=== PATIENT | female | born 1980 | race Caucasian/White ===

== ENCOUNTER 2022-03-03 15:42 | Outpatient (CLI) | payer BC, SELFPAY | END 2022-03-03 15:43 | disposition home or self-care (01) | LOC: NFLDREF 15:42 | PROVIDERS: Visit Provider Obstetrics & Gynecology | DX: Z01.419 Encounter for gynecological examination (general) (routine) without abnormal findings (principal); E66.9 Obesity, unspecified; Z12.4 Encounter for screening for malignant neoplasm of cervix; Z13.6 Encounter for screening for cardiovascular disorders | CPT/HCPCS: 87624; 88175 ==

== ENCOUNTER 2023-03-24 13:03 | Outpatient (CLI) | payer BC, SELFPAY ==
--- NOTE | 2023-03-24 13:20 | CRLHL7_ITS ---
For Patients: As a result of the Century Cures Act, medical imaging exams and procedure reports are released immediately into your electronic medical record. You may view this report before your referring provider. If you have questions, please contact your health care provider. BILATERAL DIGITAL SCREENING MAMMOGRAM WITH TOMOSYNTHESIS AND COMPUTER-AIDED DETECTION, 03/24/2023 INDICATION: 43-year-old female. Screening evaluation. TECHNIQUE: CC and MLO views were obtained. This digital study was evaluated with the assistance of computer-aided detection. Digital breast tomosynthesis utilized in interpretation. COMPARISON: May 11, 2020. FINDINGS: Breast composition: There are scattered areas of fibroglandular density. Within the superior lateral RIGHT breast at approximately the 10 o`clock position 5 cm from the nipple is a small cluster of punctate microcalcifications. The is a subtly increased in number and conspicuity when compared to May 11, 2020. A spot compression view with magnification in the CC and true ML projection recommended as a first step. The LEFT breast is negative and unchanged. IMPRESSION: Small cluster of punctate microcalcifications upper-outer quadrant RIGHT breast approximately 5 cm from the nipple at the 10 o`clock position for which additional imaging is recommended as a first step. BI-RADS Category 0: Incomplete: Need Additional Imaging Evaluation and/or Prior Mammograms for Comparison The [facility] will contact the patient for follow-up. A lay language report of this examination will be provided to the patient. Dictated by: Aki Prado MD @03/27/2023 8:45:27 AM JR/Dictated by: Aki Prado MD @ 03/27/2023 8:45:00 AM (Electronically Signed)
== END 2023-03-24 13:04 | disposition home or self-care (01) ==
LOC: MAMMO 13:05
PROVIDERS: Visit Provider Orthopaedic Surgery
DX: Z12.31 Encounter for screening mammogram for malignant neoplasm of breast (principal); R92.0 Mammographic microcalcification found on diagnostic imaging of breast
CPT/HCPCS: 77063; 77067

== ENCOUNTER 2023-03-29 07:35 | Outpatient (CLI) | payer BC, SELFPAY ==
--- NOTE | 2023-03-29 07:45 | CRLHL7_ITS ---
For Patients: As a result of the Cures Act, medical imaging exams and procedure reports are released immediately into your electronic medical record. You may view this report before your referring provider. If you have questions, please contact your health care provider. RIGHT BREAST DIAGNOSTIC MAMMOGRAM WITH COMPUTER-AIDED DETECTION INDICATION: Follow up microcalcifications. TECHNIQUE: Spot compression magnification view of the RIGHT breast in the CC and true ML projection. MLO view was also obtained. COMPARISON: March 24, 2023, May 11, 2020. FINDINGS: Small cluster of calcifications upper outer RIGHT breast 10 o`clock position approximately 5-6 cm from the nipple. These appear to reflect [id number] which is a benign finding. Stereotactic breast biopsy is not recommended. Annual mammography is recommended. These findings were discussed in detail with the patient and the patient`s mother who was present in the room. IMPRESSION: Benign calcifications upper outer RIGHT breast. Annual mammography recommended. BI-RADS Category 2: Benign A lay language report of this examination will be provided to the patient. Dictated by: Aki Prado MD @03/29/2023 8:54:35 AM/rosas DIMAS/Dictated by: Aki Prado MD @ 03/29/2023 8:53:00 AM (Electronically Signed)
== END 2023-03-29 07:36 | disposition home or self-care (01) ==
PROVIDERS: Visit Provider Physician Assistant
DX: R92.0 Mammographic microcalcification found on diagnostic imaging of breast (principal); N63.10 Unspecified lump in the right breast, unspecified quadrant; R92.8 Other abnormal and inconclusive findings on diagnostic imaging of breast
CPT/HCPCS: 77065; G0279

== ENCOUNTER 2023-04-11 12:09 | Outpatient (CLI) | payer BC, SELFPAY | END 2023-04-11 12:10 | disposition home or self-care (01) | PROVIDERS: Visit Provider Physician Assistant | DX: Z01.419 Encounter for gynecological examination (general) (routine) without abnormal findings (principal); I10 Essential (primary) hypertension; E66.01 Morbid (severe) obesity due to excess calories; Z13.6 Encounter for screening for cardiovascular disorders | CPT/HCPCS: 80048; 80061 ==